=== PATIENT | female | born 1960 | race Caucasian/White ===

== ENCOUNTER 2017-07-03 08:49 | Outpatient (CLI) | payer OTHER | END 2017-07-03 08:50 | disposition home or self-care (01) | LOC: BICULT 08:49 | PROVIDERS: ATTEND Internal Medicine | DX: R10.9 Unspecified abdominal pain (principal); K74.60 Unspecified cirrhosis of liver; N20.0 Calculus of kidney | CPT/HCPCS: 76700 ==

== ENCOUNTER 2018-06-11 10:44 | Outpatient (CLI) | payer OTHER ==
--- NOTE | 2018-06-11 12:16 | RAD ---
3 VIEWS RIGHT SHOULDER: Date: 06/11/18 COMPARISON: None. HISTORY: Right shoulder triggerpoint pain. FINDINGS: Three views of the right shoulder show no evidence of acute fracture or dislocation. No degenerative changes are seen. No soft tissue swelling is present. IMPRESSION: Unremarkable exam. POS: [facility]
== END 2018-06-11 10:45 | disposition home or self-care (01) ==
LOC: BICRAD 10:44
PROVIDERS: ATTEND Orthopaedic Surgery
DX: M25.511 Pain in right shoulder (principal)

== ENCOUNTER 2018-07-23 08:47 | Outpatient (CLI) | payer OTHER ==
--- NOTE | 2018-07-23 10:48 | ULT ---
ULTRASOUND ABDOMEN: Date: 07/23/18 HISTORY: Biliary cirrhosis. COMPARISON: Ultrasound abdomen from 07/03/17. FINDINGS: Real-time Erickson scale with color and spectral analysis of the liver was performed. Visualized portions of the pancreas are unremarkable. Hepatic echotexture is coarsened with a nodular contour indicating cirrhosis. No underlying mass. Portal vein is patent with antegrade flow. The ena ocity of the portal vein is slightly decreased. Liver measures 14.1 cm in length. No pericholecystic fluid. Gallbladder is normal. Common bile duct m easures 8.0 mm. No cholelithiasis or choledocholithiasis is appreciated. Right kidney measures 9.7 x 4.9 x 5.4 cm. Left kidney measures 9.9 x 5.5 x 7.8 cm without mass, hydronephrosis, or abnormal calc ifications appreciated. Spleen measures 7.2 cm in length. Sonographic Palomares's sign is negative. IMPRESSION: Hepatic cirrhosis with changes of early portal hypertension. POS: [facility]
== END 2018-07-23 08:48 | disposition home or self-care (01) ==
LOC: BICULT 08:47
PROVIDERS: ATTEND Internal Medicine
DX: Z12.9 Encounter for screening for malignant neoplasm, site unspecified (principal); K74.3 Primary biliary cirrhosis; K74.60 Unspecified cirrhosis of liver
CPT/HCPCS: 76700

== ENCOUNTER 2018-07-27 10:39 | Outpatient (CLI) | payer OTHER ==
--- NOTE | 2018-07-27 13:53 | MRI ---
MRI OF THE RIGHT SHOULDER WITHOUT CONTRAST: Date: 07/27/18 INDICATION: Impingement shoulder. COMPARISON: Shoulder radiograph dated 06/11/18. FINDINGS: There is complete rotator cuff tear involving the supraspinatus and infraspinatus with retraction of the tendons through the glenoid joint. There is prominent degenerative fraying of the glenoid labrum superiorly. There is full thickness tear of the long head of the biceps tendon with distal retraction beyond the field of view. There is mild AC joint osteoarthrosis. There are subchondral cyst-like abn ormalities involving the undersurface of the acromion which may be related to humeral head impaction. There is prominent atrophy of the supraspinatus and infraspinatus. There is moderate tendinosis of t he subscapularis. IMPRESSION: 1. Massive rotator cuff tear with severe atrophy of the supraspinatus and infraspinatus. There is re traction of the tendons through the glenoid head. 2. Complete long head of biceps tendon with distal retraction. 3. Prominent irregularity of the superior glenoid labrum consistent with degenerative fraying. 4. Moderate subscapularis tendinosis. 5. Mild AC joint osteoarthrosis. POS: [facility]
== END 2018-07-27 10:40 | disposition home or self-care (01) ==
LOC: BICMRI 10:39
PROVIDERS: ATTEND Orthopaedic Surgery
DX: M75.41 Impingement syndrome of right shoulder (principal); M75.101 Unspecified rotator cuff tear or rupture of right shoulder, not specified as traumatic; M62.511 Muscle wasting and atrophy, not elsewhere classified, right shoulder; M19.011 Primary osteoarthritis, right shoulder; M75.81 Other shoulder lesions, right shoulder

== ENCOUNTER 2019-03-04 07:40 | Outpatient (CLI) | payer OTHER ==
--- NOTE | 2019-03-04 08:35 | ULT ---
ABDOMINAL ULTRASOUND HISTORY: Cirrhosis FINDINGS: Liver: There is a coarsened echotexture of the liver with a nodular peripheral contour suggesting cir rhosis. No defined mass is delineated. Flow is demonstrated in the main portal vein. Gallbladder: No gallbladder calculi are visualized. There is no gallbladder wall thickening or perich olecystic fluid. Common duct: The common duct is dilated measuring 9 mm in diameter. Pancreas: The limited visualized pancreas demonstrates a normal sonographic appearance. IVC: Limited visualized IVC has a normal sonographic appearance. Aorta: The aorta is normal in caliber. Spleen: Within normal limits. Kidneys: An approximately 7 mm echogenic focus with posterior shadowing is seen in the inferior pole right kidney suggesting a nonobstructing calculus. Right kidney otherwise demonstrates a normal sonographic appearance and measures 8.8 cm in length. The left kidney is difficult to delineate but d emonstrates a grossly normal sonographic appearance and measures 10.2 cm in length. IMPRESSION: 1. Evidence of cirrhosis. 2. Nonobstructing inferior pole right renal calculus. 3. No gallbladder calculus is seen, but the common duct is dilated measuring 9 mm in diameter. No int rahepatic biliary ductal dilatation is seen. Etiology for extrahepatic common duct dilatation is uncertain based on this exam.
== END 2019-03-04 07:41 | disposition home or self-care (01) ==
LOC: ULT 07:40
PROVIDERS: ATTEND Internal Medicine
DX: K74.3 Primary biliary cirrhosis (principal); E55.9 Vitamin D deficiency, unspecified; K74.60 Unspecified cirrhosis of liver; N20.0 Calculus of kidney
CPT/HCPCS: 76700